=== PATIENT | male | born 1990 | race Caucasian/White ===

== ENCOUNTER 2018-03-14 21:26 | Emergency (ER) | payer SELFPAY, OTHER ==
[2018-03-15] MEDS: OXYCODONE/ACETAMINOPHEN (5/325) TAB PO (03:43)
== END 2018-03-15 05:31 | disposition home or self-care (01) ==
LOC: FTE 03-15 05:31
DX: S69.91XA Unspecified injury of right wrist, hand and finger(s), initial encounter (principal); W22.01XA Walked into wall, initial encounter; Y92.9 Unspecified place or not applicable
CPT/HCPCS: 29125; 73130-RT; 99283-25